=== PATIENT | female | born 1980 | race Caucasian/White ===

== ENCOUNTER 2016-12-25 06:37 | Day surgery (SDC) | payer BC, OTHER ==
[2016-12-25] MEDS ORDERED: Lactated Ringers 1,000 ML IV SCH (06:45)
[2016-12-25] MEDS ORDERED: Sodium Chloride 0.9% 10 ML Syringe FLUSH PRN (06:45)
--- NOTE | 2016-12-25 08:08 | PCM.HP ---
H&P History of Present Illness - General Date of Service: 12/25/16 (H&P fro 11/20/2016 reviewed) Admit Problem/Dx: Admission Diagnosis/Problem Admission Diagnosis/Problem Laparoscopic cholecystectomy Source of Information: Patient, Old records History Limitations: Reports: No limitations - History of Present Illness Initial Comments - Free Text/Narative: Here for l;ap alek for chronic RUQ abd pain Onset of Symptoms: Reports: gradual Duration of Symptoms: Reports: Chronic Location: Reports: abdomen (RUQ) Severity: moderate Worsens with: Reports: Eating (fatty foods) - Related Data Allergies/Adverse Reactions: Allergies Allergy/AdvReac Type Severity Reaction Status Date / Time amoxicillin Allergy Mild Rash Verified 12/25/16 07:16 Penicillins Allergy Mild Rash Verified 12/25/16 07:16 Home Medications: Home Meds Cetirizine HCl [Zyrtec] 10 mg PO ASDIRECTED 12/22/16 [History] Levothyroxine Sodium [Synthroid] 112 mcg PO ACBREAKFAST 12/22/16 [History] Past Medical History HEENT History: Reports: Impaired vision Respiratory History: Reports: None Gastrointestinal History: Reports: Cholelithiasis, GERD 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: Endocrine/Metabolic History: Reports: Hypothyroidism - Infectious Disease History Infectious Disease History: Reports: Chicken pox - Past Surgical History HEENT Surgical History: Reports: Tonsillectomy GI Surgical History: Reports: Cholecystectomy Social & Family History - Family History Family Medical History: Noncontributory - Tobacco Use Smoking Status *Q: Never Smoker - Caffeine Use Caffeine Use: Reports: Soda Other Caffeine Use: 20 OZ SODA A DAY - Recreational Drug Use Recreational Drug Use: No H&P Review of Systems - Review of Systems: Review Of Systems: ROS reveals no pertinent complaints other than HPI. Exam - Exam Exam: See Below - Vital Signs Vital Signs: Last Vital Signs Temp 97.6 F 12/25/16 07:10 Pulse 90 12/25/16 07:10 Resp 20 12/25/16 07:10 BP 110/71 12/25/16 07:10 Pulse Ox 97 12/25/16 07:10 Weight: 110.677 kg - Exam General: alert, oriented Lungs: Clear to auscultation, Normal respiratory effort Cardiovascular: regular rate, regular rhythm Abdomen: soft. No: hernia, mass - Patient Data Lab Results last 24 hrs: Laboratory Results - last 24 hr 12/25/16 Range/Units 07:00 Urine HCG, Qual Negative (NEGATIVE) *Q Meaningful Use (ADM) - VTE *Q VTE Criteria *Q: - Stroke *Q Stroke Criteria *Q: - AMI *Q AMI Criteria *Q: Problem List Initiated/Reviewed/Updated: Yes Orders Last 24hrs: Active Orders 24 hr Category Date Time Status Patient Status [ADT] Routine ADT 12/25/16 06:45 Ordered Patient to Empty Bladder [RC] ASDIRECTED Care 12/25/16 06:45 Active Verify Patient Consent Obtain [RC] ASDIRECTED Care 12/25/16 06:45 Active Lactated Ringers [Ringers, Lactated] 1,000 ml Med 12/25/16 06:45 Active IV ASDIRECTED Sodium Chloride 0.9% [Saline Flush] Med 12/25/16 06:45 Active 10 ml FLUSH ASDIRECTED PRN Peripheral IV Insertion Adult [OM.PC] Routine Oth 12/25/16 06:45 Ordered Sequential Compression Device [OM.PC] Routine Oth 12/25/16 06:45 Ordered Medication Orders Lactated Ringer's (Ringers, Lactated) 1,000 mls @ 125 mls/hr IV ASDIRECTED ADAMS Last Admin: 12/25/16 07:50 Dose: 125 mls/hr Sodium Chloride (Saline Flush) 10 ml FLUSH ASDIRECTED PRN PRN Reason: Keep Vein Open Assessment/Plan Comment:: Chronic Cholecystitis Ok to proceed with lap alek
[2016-12-25] MEDS ORDERED: Propofol 200 MG/20 ML SDV IV ONE (08:13)
[2016-12-25] MEDS ORDERED: hydrOXYzine HCl 50 MG/ML SDV IM ONE (08:13)
[2016-12-25] MEDS ORDERED: Rocuronium 50 MG/5 ML Vial IV ONE (08:13)
[2016-12-25] MEDS ORDERED: Succinylcholine/Normal Saline 200 MG/10 ML Syringe IV ONE (08:13)
[2016-12-25] MEDS ORDERED: Dexamethasone 4 MG/ML 5 ML MDV IVPUSH ONE (08:13)
[2016-12-25] MEDS ORDERED: Morphine 10 MG/ML Syringe IVPUSH ONE (08:13)
[2016-12-25] MEDS ORDERED: Neostigmine Methylsulfate 1 MG/ML 5 ML Syringe IV ONE (08:13)
[2016-12-25] MEDS ORDERED: Midazolam 1 MG/ML 2 ML SDV IV ONE (08:13)
[2016-12-25] MEDS ORDERED: Lidocaine 2% 100 MG/5 ML Syringe IVPUSH ONE (08:13)
[2016-12-25] MEDS ORDERED: Ketorolac 30 MG/ML SDV IVPUSH ONE (08:13)
[2016-12-25] MEDS ORDERED: Ondansetron 4 MG/2 ML SDV IVPUSH ONE (08:13)
--- NOTE | 2016-12-25 09:01 | PCM.OPNOTE ---
- General Post-Op/Procedure Note Date of Surgery/Procedure: 12/25/16 Operative Procedure(s): Lap alek Pre Op Diagnosis: Chronic Cholecystitis Post-Op Diagnosis: Same Anesthesia Technique: General ET tube Primary Surgeon: Prery Allen Anesthesia Provider: Kirstie Flores Pathology: gallbladder EBL in mLs: 5 Complications: None Condition: Good
[2016-12-25] MEDS ORDERED: Acetaminophen/HYDROcodone 325-5 MG Tab PO ONE (10:11)
[2016-12-25 11:49] VITALS: BP 114/74
--- NOTE | 2016-12-25 13:52 | OR ---
DATE OF OPERATION: 12/25/2016 SURGEON: Perry Allen MD PREOPERATIVE DIAGNOSIS: Chronic cholecystitis. POSTOPERATIVE DIAGNOSIS: Chronic cholecystitis. PROCEDURE: Laparoscopic cholecystectomy. ANESTHESIA: General. DESCRIPTION OF PROCEDURE: The patient was brought to the operating room, where general endotracheal anesthesia was administered. Her abdomen was prepped with ChloraPrep and draped sterilely. An infraumbilical incision was made and extended into the peritoneal cavity without difficulty. The Sue cannulator was introduced and pneumoperitoneum obtained. The patient was placed in reverse Trendelenburg position and rotated to her left. The remaining three 5 mm ports were placed in the usual positions. General exploration revealed the surface of the peritoneum, omentum, stomach, and liver surfaces to be normal. The liver was fatty replaced and the gallbladder was grasped and did have a filmy omental adhesions to its undersurface that were taken down with blunt dissection. The cystic duct and cystic artery were dissected free with minimal difficulty. There was some fibrosis and evidence of chronic cholecystitis present. Cystic artery was doubly clipped proximally and once distally and then transected. The anatomy of the cystic duct was reconfirmed and could be seen entering the gallbladder and extending towards the common bile duct. This was doubly clipped proximally and once distally and then transected. The gallbladder was then removed from the bed of the liver without difficulty. No bleeding or bile leakage occurred. The gallbladder was brought out through the umbilical port site. The right upper quadrant was thoroughly irrigated and hemostasis assured. Ports were removed under direct vision and remained hemostatic. The umbilical fascia was closed with [id number] #0 Vicryl. Skin was closed with #4-0 Vicryl subcuticular sutures. Benzoin and Steri-Strips were placed and Band-Aids applied. The patient tolerated the procedure well and returned to recovery in stable condition. ESTIMATED BLOOD LOSS: Less than 5 mL. /[id number] ILIANA/ANA
== END 2016-12-25 11:45 | disposition home or self-care (01) ==
LOC: FB.SDS 06:37
PROVIDERS: ATTEND Surgery
PROC: 0FT44ZZ Resection of Gallbladder, Percutaneous Endoscopic Approach (ICD-10-PCS; principal; 2016-12-25)
DX: K81.1 Chronic cholecystitis (principal); E03.9 Hypothyroidism, unspecified; K21.9 Gastro-esophageal reflux disease without esophagitis
CPT/HCPCS: 47562; 81025; 88304; A9270; J1100; J1885; J2250; J2270; J2405; J2704; J3410; J7120